=== PATIENT | female | born 1985 | race Caucasian/White ===

== ENCOUNTER → 2022-04-09 13:53 | Outpatient (CLI) | payer OTHER, SELFPAY ==
--- NOTE | ~2022-04-09 | US_ITS ---
US thyroid INDICATION: Hypothyroidism TECHNIQUE: Real-time sonographic images of the thyroid gland were obtained. COMPARISON: No prior studies for comparison. FINDINGS: The right thyroid lobe measures 3.9 x 0.9 x 1.2 cm. The left thyroid lobe measures 3.8 x 0 .9 x 1 cm. There is homogeneous echotexture in both lobes. In the right lobe there is a 2 mm hypoecho ic solid mass which is wider than tall, smoothly marginated without echogenic foci, TR 4. No mass is identified in the left lobe. Normal vascular flow is present. IMPRESSION: 1. Small 2 mm right thyroid mass, likely benign. Otherwise, unremarkable thyroid ultrasound. Reviewed, dictated and finalized at location A. IMPRESSION: 1. Small 2 mm right thyroid mass, likely benign. Otherwise, unremarkable thyro id ultrasound.
== END ==
PROVIDERS: PCP Physician Assistant; Visit Provider Physician Assistant
DX: E03.9 Hypothyroidism, unspecified (principal)
CPT/HCPCS: 76536

== ENCOUNTER → 2023-05-24 13:43 | Outpatient (CLI) | payer OTHER, SELFPAY ==
--- NOTE | ~2023-05-24 | US_ITS ---
EXAMINATION: US thyroid DATE: 05/24/2023 14:01 INDICATION: Hypothyroidism TECHNIQUE: Multiple ultrasound images of the thyroid were obtained. COMPARISON: None. FINDINGS: The right thyroid lobe measures 4.3 x 1.3 x 1.0 cm. The left thyroid lobe measures 3.8 x 1.1 x 1.1 c m. The isthmus measures 0.2 cm. There is normal echotexture and echogenicity throughout the thyroid g land. No discrete nodules identified. Normal vascular flow is present. IMPRESSION: Unremarkable thyroid ultrasound findings Reviewed, dictated and finalized at location K. SCIENCES TEACHER
== END ==
PROVIDERS: PCP Physician Assistant; Visit Provider Physician Assistant
DX: E03.9 Hypothyroidism, unspecified (principal)
CPT/HCPCS: 76536

== ENCOUNTER 2023-07-01 13:57 | Outpatient (CLI) | payer OTHER, SELFPAY ==
--- NOTE | ~2023-07-01 | MM_ITS ---
EXAMINATION: MM screening [place] BI w radha HISTORY: Screening mammogram TECHNIQUE: Craniocaudal and mediolateral oblique 3-D tomosynthesis images were obtained and synthetic 2-D images were generated. CAD analysis was submitted and interpreted. COMPARISON: No prior mammogram is available for comparison at this institution. BREAST PARENCHYMAL COMPOSITION: The breasts are heterogeneously dense, which may obscure small masses . FINDINGS: Status post bilateral augmentation mammoplasty. There is no evidence of suspicious mass, ca lcification, or architectural distortion to suggest malignancy in either breast. There has been no navarrete spicious interval change. IMPRESSION: 1. No mammographic evidence of malignancy. 2. Recommend routine screening mammography in one year. BI-RADS Category 1: Negative Reviewed, dictated and finalized at location A. SNAPPER
== END 2023-07-01 13:58 | disposition home or self-care (01) ==
LOC: CHSIMG 14:00
PROVIDERS: PCP Physician Assistant; Visit Provider Surgery Plastic and Reconstructive Surgery
DX: Z12.31 Encounter for screening mammogram for malignant neoplasm of breast (principal)
CPT/HCPCS: 77063; 77067

== ENCOUNTER 2023-08-18 00:08 | Day surgery (SDC) | payer OTHER, SELFPAY ==
[2023-08-08 12:42] VITALS: BMI 24.7
--- NOTE | 2023-08-08 12:45 | PC.NURSE ---
Report to the Outpatient Waiting Room, entrance under the green pavilion located off [facility], at time 0700 on date 08/18/23. Planned Procedure Time: 0900. Time changes happen often and if your time is changed the preop area will call you the afternoon before. - You and your visitor will be asked to self-screen and do not enter if you have any COVID symptoms. - A mask is optional within the hospital at this time. Patients may have clear liquids (water, carbonated beverages, clear teas, apple juice) until 3 hours prior to surgery with a maximum of 20 ounces. - No food from midnight until time of surgery Take the following medications with a SIP of water the morning of surgery: SYNTHROID DO NOT STOP ANY OF YOUR OTHER PRESCRIPTION MEDICATIONS PRIOR TO SURGERY ?EXCEPT THE FOLLOWING Medications to discontinue per physician: N/A Date to take last dose: N/A Please no make-up, nail yoruba, hairspray, perfume, deodorant, or body powder the day of surgery. No jewelry (including any body piercings) or valuables the day of surgery, leave them at home. Please take a shower or bath the night before, or the morning of, surgery with an antibacterial soap. Wear comfortable, loose fitting clothing. - Jewelry must be removed prior to entering the operating room. Rings and piercings that are not removed may be cut off. - The hospital will not accept responsibility for valuables. - Please leave all valuables, including medications, at home the day of surgery. If you are going home after surgery, a licensed owner operator tanker truck driver must drive you home. - NO public transportation without another adult if you receive anesthesia. - We recommend that an adult stay with you for 24 hours following discharge. - We also recommend that you do not drive, make important decision, drink alcoholic beverages, or take any drugs that were not prescribed by your health care provider for at least 24 hours after your discharge time. Follow any additional instructions given to you from your surgeon. If you or anyone in your household have experienced Covid symptoms in the past week, please notify your surgeon or the nurse liaison at the phone number below for possible testing. Telephone instructions given to PT - DYLON CLICK and asked if any additional questions and then verbalized understanding. Patient advised to call surgeon office or pre surgery nurse liaison [phone] if any additional questions.
[2023-08-18] VITALS (9 sets, daily range): BP systolic 94–107; BP diastolic 52–66; PULSE 63–79; RESP 12–18; TEMP 36.2–37; O2SAT 96–100
[2023-08-18] MEDS: LACTATED RINGERS 1,000 ML 30 ML IV CONT ×2 (07:35→10:33)
--- NOTE | 2023-08-18 08:22 | WPDHPUPDATE1 ---
History and Physical Update Update Date/Time: 08/18/23 08:22 History and Physical has been reviewed, including an updated exam of the patient. There are NO changes in the patient's condition. Risks, benefits, and alternatives have been discussed and questions answered. Patient agrees to proceed with procedure.
--- NOTE | 2023-08-18 08:35 | WPDANESEPPF ---
Anes - Initial Pre Proc Eval Procedure: Operation Date: 08/18/23 09:00 Proposed Procedures p Bilateral Breast Implant Exchange with Capsulectomy - Wolf Granados MD Date/Time: 08/18/23 08:35 Surgeon: Wolf Granados MD Pre Op Diagnosis: Hx of Breast Aug Patient Data Age: 38 Gender: F Height: 1.57 m Weight: 63.2 kg Last Vital Signs Temp 98.6 F 08/18/23 06:56 Pulse 65 08/18/23 06:56 Resp 18 08/18/23 06:56 BP 104/65 08/18/23 06:56 Pulse Ox 100 08/18/23 06:56 O2 Del Method Room Air 08/18/23 06:56 Allergies Allergy/AdvReac Type Severity Reaction Status Date / Time No Known Allergies Allergy Verified 08/08/23 12:48 Home Medications Medication Instructions Recorded Confirmed Type escitalopram oxalate 5 mg tablet 5 mg PO HS 08/08/23 08/18/23 History levothyroxine 88 mcg tablet 88 mcg PO DAILY 08/08/23 08/18/23 History (Synthroid) norethindrone 1 mg-ethinyl 1 tablet PO HS 08/08/23 08/18/23 History estradiol 20 mcg (21)-iron 75 mg (7) tablet (07/23 (28)) Patient hx anesthesia problems: none Family hx anesthesia problems: none Results Review: All pre-operative results and documents have been reviewed as part of the pre-operative evaluation. [facility] Social History Social History Smoking status: Never smoker Alcohol intake: current Alcohol use details: 1-2/YEAR Substance use: never Substance use type: does not use Living arrangements: with family Spiritual care concerns: No Anes - Eval Final PreProcedure Day of Procedure 08/18/23 08:35 Patient weight: normal Heart: regular rate and rhythm Lungs: clear to auscultation Airway: Mallampati scale class II Neurological: alert and oriented Last oral intake: >/= 8 hours ASA classification: II Emergent: no Anesthetic plan: proceed Anesthesia type and monitoring: general LMA and standard monitoring Results Review: All pre-operative results and documents have been reviewed as part of the pre-operative evaluation. Informed Consent: The patient's anesthetic plan and its attendant risks and benefits were discussed with the patient/family/POA. Questions were solicited and answers provided to the satisfaction of the patient/family/POA.
--- NOTE | 2023-08-18 08:43 | W.PM.PROC2 ---
Procedure Note - Detailed Date of Procedure 08/18/23 Pre-op Diagnosis Hx of Breast Aug Post-op Diagnosis Same Procedure Performed Bilateral implant exchange with change of plans to submuscular Surgeon Wolf Granados MD Anesthesia General Findings Previous implants - textured. Intact. No worriseome features. New implants Submuscular (dual plane). Bilateral Adan Edgar Softtouch 485cc Right - REF# SSF-485 SN [id number] Left - REF# SSF-485 SN [id number] Description of Procedure Preoperatively the risks, benefits, alternatives were discussed in extensive detail. I wanted to be very realistic about the risks involved as well as expectations. I was clear about how we could actually make her worse. Answered all questions to satisfaction. Voiced a clear understanding. Consent obtained. She was taken the operating room placed supine on the operating room table. Anesthesia provided by anesthesiology and prepped and draped in a standard sterile fashion. Surgical time-out was taken. 1% lidocaine and 0.25% Marcaine with epinephrine was used to provide a field block. Tegaderm nipple araujo were placed. Fifteen blade used to excise the previous IMF scars. Dissection was continued down until the capsules were identified and elevated superficial to this. I then incised in a superior aspect and the implant was removed. A signficiant portion of the capsule was removed; however, left an an capsular flap based on the inferior border of the muscle. I then copiously irrigated with 3 L of saline solution on TUR tubing. Verified strict hemostasis. Incised the pectoralis on it's inferior border. Elevated subpectoral to appropriate dimensions. I then irrigated with Betadine containing solution. Using a no-touch technique and a Mcdonald funnel the implant was introduced into the pocket. This was closed with 2-0 PDS (securing the capsuar flap with this to provide implant coverage. followed by 3-0 Monocryl and a running subcuticular 4-0 Monocryl followed by tissue glue. Dressings were placed. She was woken taken to the PACU without difficulty. All instrument sponge counts were correct at the end of the case. Estimated Blood Loss 50 Drains No Packing No Pathology Yes (Bilateral implant capsules.) Complications No immediate complications Condition Stable Disposition PACU
[2023-08-18] MEDS: NACL 0.9% IRRIG POUR BOTTLE 900 ML, GENTAMICIN SULFATE INJ 160 MG, ceFAZolin 2 GM, POVI... IRRIGATION (08:46)
[2023-08-18] MEDS: TRANEXAMIC ACID 1,000MG/ISO100 1,000 MG/100 ML BAG 200 MG IVPB (08:46)
[2023-08-18] MEDS: ceFAZolin 2 GM/D5W 50 ML 2 GM/50 ML BAG IVPB (08:46)
[2023-08-18] MEDS: LIDO 1%/EPINEPHRINE 1:100,000 50 ML VIAL 30 ML INFILTRATE (08:46)
[2023-08-18] MEDS: fentaNYL CITRATE INJ (*CRX) 100 MCG/2 ML VIAL 25 MCG IV PUSH ×7 (10:44→11:31)
[2023-08-18] MEDS: ONDANSETRON INJ 4 MG/2 ML VIAL IV PUSH (12:00)
[2023-08-18] MEDS: oxyCODONE HCL (*CRX) 5 MG TAB IR PO (12:12)
== END 2023-08-18 13:09 | disposition home or self-care (01) ==
PROVIDERS: PCP Physician Assistant; Visit Provider Surgery Plastic and Reconstructive Surgery
PROC: (CPT 19371; principal; 2023-08-18 09:00)
DX: Z41.1 Encounter for cosmetic surgery (principal)
CPT/HCPCS: 19371; 19325; 88184; 88304; A9270; J0690; J1100; J1580; J2250; J2405; J2704; J3010; J7120

== ENCOUNTER 2023-09-09 00:39 | Day surgery (SDC) | payer OTHER, SELFPAY ==
[2023-09-05 12:57] VITALS: BMI 25.4
--- NOTE | 2023-09-05 13:01 | PC.NURSE ---
Report to the Outpatient Waiting Room, entrance under the green pavilion located off [facility], at time 1300 on date 09/09/23. Planned Procedure Time: 1500. Time changes happen often and if your time is changed the preop area will call you the afternoon before. - You and your visitor will be asked to self-screen and do not enter if you have any COVID symptoms. - A mask is optional within the hospital at this time. Patients may have clear liquids (water, carbonated beverages, clear teas, apple juice) until 3 hours prior to surgery with a maximum of 20 ounces. - No food from midnight until time of surgery Take the following medications with a SIP of water the morning of surgery: SYNTHROID DO NOT STOP ANY OF YOUR OTHER PRESCRIPTION MEDICATIONS PRIOR TO SURGERY ?EXCEPT THE FOLLOWING Medications to discontinue per physician: N/A Date to take last dose: N/A Please no make-up, nail [place], hairspray, perfume, deodorant, or body powder the day of surgery. No jewelry (including any body piercings) or valuables the day of surgery, leave them at home. Please take a shower or bath the night before, or the morning of, surgery with an antibacterial soap. Wear comfortable, loose fitting clothing. - Jewelry must be removed prior to entering the operating room. Rings and piercings that are not removed may be cut off. - The hospital will not accept responsibility for valuables. - Please leave all valuables, including medications, at home the day of surgery. If you are going home after surgery, a licensed moving van driver must drive you home. - NO public transportation without another adult if you receive anesthesia. - We recommend that an adult stay with you for 24 hours following discharge. - We also recommend that you do not drive, make important decision, drink alcoholic beverages, or take any drugs that were not prescribed by your health care provider for at least 24 hours after your discharge time. Follow any additional instructions given to you from your surgeon. If you or anyone in your household have experienced Covid symptoms in the past week, please notify your surgeon or the nurse liaison at the phone number below for possible testing. Telephone instructions given to PT - DYLON CLICK and asked if any additional questions and then verbalized understanding. Patient advised to call surgeon office or pre surgery nurse liaison [phone] if any additional questions.
[2023-09-09] VITALS (7 sets, daily range): BP systolic 117–127; BP diastolic 65–81; PULSE 68–108; RESP 12–20; TEMP 36.6–37.1; O2SAT 96–100
[2023-09-09] MEDS: LACTATED RINGERS 1,000 ML 30 ML IV CONT (13:23)
--- NOTE | 2023-09-09 14:10 | WPDHPUPDATE1 ---
History and Physical Update Update Date/Time: 09/09/23 14:10 History and Physical has been reviewed, including an updated exam of the patient. There are NO changes in the patient's condition. Risks, benefits, and alternatives have been discussed and questions answered. Patient agrees to proceed with procedure.
--- NOTE | 2023-09-09 14:11 | W.PM.PROC2 ---
Procedure Note - Detailed Date of Procedure 09/09/23 Pre-op Diagnosis hematoma right breast Post-op Diagnosis Same Procedure Performed Right breast implant exchange with washout Surgeon Wolf Granados MD Anesthesia General Indications She underwent bilateral implant exchange with place change to submuscular on 08/18/2023. Postoperatively she has developed a fluid collection the right breast along IMF. Using ultrasound guidance in office I was able aspirate it does appear this is hematoma. She has elected to proceed with right breast washout / implant exchange. Findings Previous right implant: Right - REF# SSF-485 New right implant: Right - REF# SSF-485 [id number] Small volume old hematoma. Significant anterior capsular thickening excised. Description of Procedure Preoperatively the risks, benefits, alternatives were discussed in extensive detail. I wanted to be very realistic about the risks involved as well as expectations. I was clear about how we could actually make her worse. Answered all questions to satisfaction. Voiced a clear understanding. Consent obtained. She was taken the operating room placed supine on the operating room table. Anesthesia provided by anesthesiology and prepped and draped in a standard sterile fashion. Surgical time-out was taken. 1% lidocaine and 0.25% Marcaine with epinephrine was used to provide a field block. Tegaderm nipple araujo were placed. Fifteen blade used to excise the previous right IMF scars. Dissection was continued down until the capsules were identified and opened. There was a small volume of old hematoma (10cc est) with signficiant thickening of anterior capsule. Implant removed. Capsule excised. I then copiously irrigated with saline solution on TUR tubing. Several washes verifying hemostasis between each for more than 2 liters of saline. Verified strict hemostasis. I then irrigated with Betadine containing solution. Using a no-touch technique and a Mcdonald funnel the implant was introduced into the pocket. This was closed with 2-0 PDS. Placed in a sitting position to verify implant positioning. Placed supine and finished closure with 3-0 Monocryl and a running subcuticular 4-0 Monocryl followed by tissue glue. Dressings were placed. She was woken taken to the PACU without difficulty. All instrument sponge counts were correct at the end of the case. Estimated Blood Loss 10 Drains No Packing No Pathology None sent Complications No immediate complications Condition Stable Disposition PACU
--- NOTE | 2023-09-09 14:24 | P.PNAN_ITS ---
Anes - Initial Pre Proc Eval Procedure: Operation Date: 09/09/23 15:00 Proposed Procedures p Right Breast Implant Exchange with Washout, Hematoma Evacuation Right Breast - Wolf Granados MD Date/Time: 09/09/23 14:24 Surgeon: Wolf Granados MD Pre Op Diagnosis: hematoma right breast Patient Data Age: 38 Gender: F Height: 1.57 m Weight: 63.1 kg Last Vital Signs Temp 97.8 F 09/09/23 13:30 Pulse 68 09/09/23 13:30 Resp 16 09/09/23 13:30 BP 120/65 09/09/23 13:30 Pulse Ox 100 09/09/23 13:30 O2 Del Method Room Air 09/09/23 13:30 Allergies Allergy/AdvReac Type Severity Reaction Status Date / Time No Known Allergies Allergy Verified 09/09/23 13:14 Home Medications Medication Instructions Recorded Confirmed Type escitalopram oxalate 5 mg tablet 5 mg PO HS 08/08/23 09/09/23 History levothyroxine 88 mcg tablet 88 mcg PO DAILY 08/08/23 09/09/23 History (Synthroid) norethindrone 1 mg-ethinyl 1 tablet PO HS 08/08/23 09/09/23 History estradiol 20 mcg (21)-iron 75 mg (7) tablet (Junel FE 07/23 (28)) carisoprodol 350 mg tablet 350 mg PO HS 09/05/23 09/09/23 History Patient hx anesthesia problems: post op nausea/vomiting Family hx anesthesia problems: none Results Review: All pre-operative results and documents have been reviewed as part of the pre- operative evaluation. [facility] Social History Social History Smoking status: Never smoker Alcohol intake: current Alcohol use details: 1-2/YEAR Substance use: never Substance use type: does not use Living arrangements: with family Spiritual care concerns: No Anes - Eval Final PreProcedure Day of Procedure 09/09/23 14:24 Patient weight: normal Heart: regular rate and rhythm Lungs: clear to auscultation Airway: Mallampati scale class II Neurological: alert and oriented Last oral intake: >/= 8 hours ASA classification: II Emergent: no Anesthetic plan: proceed Anesthesia type and monitoring: general LMA and standard monitoring Results Review: All pre-operative results and documents have been reviewed as part of the pre- operative evaluation. Informed Consent: The patient's anesthetic plan and its attendant risks and benefits were discussed with the patient/family/POA. Questions were solicited and answers provided to the satisfaction of the patient/family/POA.
[2023-09-09] MEDS: SCOPOLAMINE 1 MG PATCH 1 PATCH TRANSDERM (14:31)
[2023-09-09] MEDS: ceFAZolin 2 GM/D5W 50 ML 2 GM/50 ML BAG IVPB (14:36)
[2023-09-09] MEDS: NACL 0.9% IRRIG POUR BOTTLE 900 ML, GENTAMICIN SULFATE INJ 160 MG, ceFAZolin 2 GM, POVI... IRRIGATION (14:51)
[2023-09-09] MEDS: LIDO 1%/EPINEPHRINE 1:100,000 20 ML VIAL 15 ML INFILTRATE (14:52)
[2023-09-09] MEDS: BUPivacaine HCL 0.25% PF 30 ML VIAL 15 ML INFILTRATE (14:53)
[2023-09-09] MEDS: TRANEXAMIC ACID 1,000 MG/10 ML AMPUL 1000 MG IV PUSH (15:07)
[2023-09-09] MEDS: fentaNYL CITRATE INJ (*CRX) 100 MCG/2 ML VIAL 25 MCG IV PUSH ×4 (15:45→16:00)
[2023-09-09] MEDS: oxyCODONE HCL (*CRX) 5 MG TAB IR PO (16:30)
== END 2023-09-09 17:15 | disposition home or self-care (01) ==
PROVIDERS: PCP Physician Assistant; Visit Provider Surgery Plastic and Reconstructive Surgery
PROC: (CPT 19342; principal; 2023-09-09 15:00)
DX: L76.34 Postprocedural seroma of skin and subcutaneous tissue following other procedure (principal); Y83.8 Other surgical procedures as the cause of abnormal reaction of the patient, or of later complication, without mention of misadventure at the time of the procedure; Z98.82 Breast implant status
CPT/HCPCS: 19371; 19325; A9270; J0690; J1100; J1580; J1596; J2250; J2405; J2704; J3010; J7120

== ENCOUNTER 2024-07-17 12:45 | Outpatient (CLI) | payer OTHER, SELFPAY ==
--- NOTE | ~2024-07-17 | CT_ITS ---
EXAMINATION: CT soft tissue neck w con DATE: 07/17/2024 13:08 INDICATION: Cervical lymphadenopathy. TECHNIQUE: Computed tomography (CT) of the neck was performed with 75 mL Omnipaque-350 intravenous co ntrast. Automated exposure control and iterative reconstruction technique were employed. The dose-ro gth product was 332.75 mGy-cm. COMPARISON: None FINDINGS: There are no pathologically enlarged lymph nodes. The cervical carotid arteries are normal. The paranasal sinuses are clear. The mastoid air cells are normal. There is severe cervical spondylo sis. IMPRESSION: 1. No lymphadenopathy. Reviewed, dictated and finalized at location A. RINARY PRACTITIONER IMPRESSION: 1. No lymphadenopathy.
== END 2024-07-17 12:46 | disposition home or self-care (01) ==
LOC: MICIMG 12:45
PROVIDERS: PCP Physician Assistant; Visit Provider Physician Assistant
DX: R59.0 Localized enlarged lymph nodes (principal)
CPT/HCPCS: 70491; Q9967

== ENCOUNTER 2024-08-08 07:00 | Outpatient (NON) | payer OTHER, SELFPAY ==
--- OUTSIDE RECORDS SUMMARY | 2024-08-09 08:05 | XMS_ITS | Patient Health Summary ---
Author Organization [facility] Address [address] [place] [address] Care Team Providers Care Gi Physician Name Role Phone Lilia Kinney Primary Care Pr ovider Note from [facility],non-owned Affiliates and Associated Physician Practices is amultiple site organization consisting of ambulatory clinics and hospital sitesin [place], [place], [place] and [place]. This disclosure is being madepursuant to the Care Everywhere program and may not contain all information available regarding this patient. Last updated 18.[facility] Allergies No known active allergies Medications * Be aware that medications may not be up to date on this document. Alwaysverify current medications with the patient. * sertraline (ZOLOFT) 50 MG tablet(Started 10/05/2019) Take 1 tablet by mouth once daily * norethin-eth estrad-fe biphas (LO LOESTRIN FE) tablet(Started 06/12/2020) Take 1 tablet by mouth once daily 3 refills by 06/12/2021 Active Problems Problem Noted Date Diagnosed Date 06/04/2019 Rubella non-immune status, antepartum 10/06/2018 Immunizations * MMR(Given 06/06/2019) * TDAP (7yrs+)(Given 05/08/2019) Social History Tobacco Use Types Packs/Day Years Used Date Smoking Tobacco: Never Smokeless Tobacco: Never Alcohol Use Standard Drinks/Week Comments No 0 (1 standard drink = 0.6 oz pur e alcohol) Sex and Gender Information Value Date Recorded Sex Assigned at Not on file Gender Identity Not on file Sexual Orientation Not on file Last Filed Vital Signs Vital Sign Reading Time Taken Comments Blood Pressure 100/68 06/12/2020 11:53 AM HAND FUR CLEANER Pulse 63 06/05/2019 10:49 PM HAND FUR CLEANER Temperature 37 C (98.6 F) 06/06/2019 7:55 AM HAND FUR CLEANER Respiratory Rate 18 06/06/2019 7:55 AM HAND FUR CLEANER Oxygen Saturation 98% 06/06/2019 7:50 AM HAND FUR CLEANER Inhaled Oxygen Concentration - - Weight 88 kg (194 lb) 06/12/2020 11:53 AM HAND FUR CLEANER Height 157.5 cm (5' 2 ) 06/12/2020 11:53 AM HAND FUR CLEANER Body Mass Index 35.48 06/12/2020 11:53 AM HAND FUR CLEANER Procedures * PAP IG LB+HPV APTIMA(Performed 06/12/2020) Performed for Well woman exam with routine gynecological exam * CBC W AUTO DIFFERENTIAL(Performed 06/05/2019) * BLOOD GASES CORD ROMEO(Performed 06/04/2019) * BLOOD GASES CORD ARTERIAL(Performed 06/04/2019) * PATHOLOGY TISSUE EXAM (STL)(Performed 06/04/2019) Performed for 40 weeks gestation of ([facility]) * NEURAXIAL BLOCK(Performed 06/04/2019) * BLOOD TYPE VERIFICATION(Performed 06/04/2019) * TYPE + SCREEN PANEL(Performed 06/04/2019) Performed for 40 weeks gestation of ([facility]) * CBC W AUTO DIFFERENTIAL(Performed 06/04/2019) Performed for 40 weeks gestation of ([facility]) * URINALYSIS REFLEX TO MICROSCOPIC NO CULTURE(Performed 06/04/2019) Performed for 40 weeks gestation of ([facility]) * US OB LIMITED(Performed 05/17/2019) Performed for Encounter for supervision of normal first in third trimester ([facility]), with 36 completed weeks gestation ([facility]), Malpresentation of fetus, unspecified type, single or unspecified fetus ([facility]) * CULTURE STREP B(Performed 05/08/2019) Performed for Encounter for supervision of normal first in third trimester ([facility]), with 36 completed weeks gestation ([facility]) * GTT 3 HR (100G) GESTATIONAL DIAGNOSTIC(Performed 03/12/2019) Performed for Abnormal glucose tolerance test (GTT) during , antepartum ([facility]) * CBC W AUTO DIFFERENTIAL(Performed 03/02/2019) Performed for 27 weeks gestation of ([facility]) * GLUCOSE CHALLENGE(Performed 03/02/2019) Performed for 23 weeks gestation of ([facility]) * US OB ANOMALY(Performed 01/15/2019) Performed for 17 weeks gestation of ([facility]) * ALPHA FETOPROTEIN BLOOD MATERNAL QUAD PANEL(Performed 12/22/2018) Performed for 17 weeks gestation of ([facility]) * US OB TRANSVAGINAL(Performed 10/19/2018) Performed for Amenorrhea * BLOOD TYPE RH ONLY(Performed 10/05/2018) Performed for Amenorrhea * BLOOD TYPE ABO ONLY(Performed 10/05/2018) Performed for Amenorrhea * ANTIBODY SCREEN(Performed 10/05/2018) Performed for Amenorrhea * HIV-1 HIV-2 ANTIBODY + HIV P24 AG PANEL(Performed 10/05/2018) * VITAMIN D 25-HYDROXY(Performed 10/05/2018) Performed for Amenorrhea * TSH(Performed 10/05/2018) Performed for Amenorrhea * T4 FREE(Performed 10/05/2018) Performed for Amenorrhea * RUBELLA ANTIBODY IGG(Performed 10/05/2018) Performed for Amenorrhea * RPR(Performed 10/05/2018) Performed for Amenorrhea * PROGESTERONE(Performed 10/05/2018) Performed for Amenorrhea * HEPATITIS B SURFACE ANTIGEN W RFLX CONFIRMATION(Performed 10/05/2018) Performed for Amenorrhea * HCG BETA BLOOD QUANTITATIVE(Performed 10/05/2018) Performed for Amenorrhea * CBC W AUTO DIFFERENTIAL(Performed 10/05/2018) Performed for Amenorrhea * URINALYSIS AUTO - POINT OF CARE(Performed 10/05/2018) Performed for Amenorrhea * CULTURE URINE(Performed 10/05/2018) Performed for Amenorrhea * PAP IG LB CT+GC+TV+ HPV HR DNA(Performed 10/05/2018) Performed for Amenorrhea Results * PAP IG LB+HPV APTIMA (06/12/2020 12:30 PM HAND FUR CLEANER) Diagnosis [facility] ACCOUNT BILL Comment:NEGATIVE FOR INTRAEP ITHELIAL LESION OR MALIGNANCY. Specimen Adequacy [facility] ACCOUNT BILL Comment: Satisfactory for evaluation. Endocervical and/or squamous metaplastic cells (endocervical component) are present. Clinician Provided ICD10 [facility] ACCOUNT BILL Comment:Z01.419 Performed by [facility] ACCOUNT BILL Comment:Azalia Upton otechnologist (ASCP) Comment . [facility] ACCOUNT BILL Note [facility] ACCOUNT BILL Comment: The Pap smear is a screening test designed to aid in the detection of premalignant and malignant conditions of the uterine cervix. It is not a diagnostic procedure and should not be used as the sole means of detecting cervical cancer. Both false-positive and false-negative reports do occur. . IGLBP CPT Code Automation [facility] ACCOUNT BILL Comment: This liquid based ThinPrep(R) pap test was screened with the use of an image guided system. Human papillomavirus Aptima Negative Negative [facility] ACCOUNT BILL Comment: This nucleic acid amplification test detects fourteen high-risk HPV types (16,18,31,33,35,39,45,51,52,56,58,59,66,68) without differentiation. PART OF UTERINE CERVIX / Unknown 06/12/2020 12:30 PM HAND FUR CLEANER 06/13/2020 Narrative [facility] ACCOUNT BILL - 06/16/2020 3:08 PM HAND FUR CLEANER Source.............Cervix;Endocervix No. of containers..01 ThinPrep Vial Resulting Agency Comment Lab Testing performed at: [address] [id number] Sandoval Campos MD LAB - PATHOLOGY/CYT OLOGY ORDERABLES [facility] ACCOUNT BILL [address] [place] [address] * (ABNORMAL) CBC W AUTO DIFFERENTIAL (06/05/2019 7:44 AM HAND FUR CLEANER) Only the most recent of4 resultswithin the time period is included. WBC 16.9(H) 4.4 - 10.7 x10E9/L 06/05/2019 7:58 AM HAND FUR CLEANER [facility] WBC Corrected 06/05/2019 7:58 AM HAND FUR CLEANER [facility] RBC 4.28 3.80 - 5.20 x10E12/L 06/05/2019 7:58 AM HAND FUR CLEANER [facility] Hemoglobin 11.9(L) 12.0 - 15.6 gm/dL 06/05/2019 7:58 AM HAND FUR CLEANER [facility] Hematocrit 36.2 35.9 - 45.5 % 06/05/2019 7:58 AM HAND FUR CLEANER [facility] MCV 84.6 80.7 - 98.3 fl 06/05/2019 7:58 AM HAND FUR CLEANER [facility] MCH 27.8 26.7 - 34.0 pg 06/05/2019 7:58 AM [facility] MCHC 32.9 30.8 - 35.9 gm/dL 06/05/2019 7:58 AM [facility] Platelet Count 231 153 - 416 x10E9/L 06/05/2019 7:58 AM [facility] RDW-CV 14.0 12.1 - 14.9 % 06/05/2019 7:58 AM [facility] MPV 9.5 9.4 - 12.9 fl 06/05/2019 7:58 AM [facility] Neutrophils % 79.6(H) 44.0 - 73.0 % 06/05/2019 7:58 AM [facility] Lymphocytes % 10.1(L) 20.0 - 43.0 % 06/05/2019 7:58 AM [facility] Monocytes % 8.4 5.0 - 13.0 % 06/05/2019 7:58 AM [facility] Eosinophils % 0.6 0.0 - 6.0 % 06/05/2019 7:58 AM [facility] Basophils % 0.3 0.0 - 2.0 % 06/05/2019 7:58 AM [facility] Immature Granulocytes 1.0 0 - 1 % 06/05/2019 7:58 AM [facility] Neutrophil Absolute 13.43(H) 2.01 - 7.14 x10E9/L 06/05/2019 7:58 AM [facility] Lymphocytes Absolute 1.71 1.07 - 3.94 x10E9/L 06/05/2019 7:58 AM [facility] Monocytes Absolute 1.41(H) 0.26 - 1.07 x10E9/L 06/05/2019 7:58 AM [facility] Eosinophils Absolute 0.10 0 - 0.47 x10E9/L 06/05/2019 7:58 AM [facility] Basophils Absolute 0.05 0 - 0.08 x10E9/L 06/05/2019 7:58 AM [facility] Immature Granulocytes Absolute 0.17(H) 0.00 - 0.06 x10E9/L 06/05/2019 7:58 AM [facility] nRBC Auto 0 /100 WBC 06/05/2019 7:58 AM [facility] Blood BLOOD SPECIMEN / Unknown Lab Venipuncture / Unknown 06/05/2019 7:44 AM HAND FUR CLEANER 06/05/2019 7:54 AM HAND FUR CLEANER Sandoval Campos MD LAB - HEMATOLOGY OR DERABLES Performing Organization Address [facility]/ZIP Co de Phone Number [facility] [address] [phone] * (ABNORMAL) BLOOD GASES CORD ROMEO (06/04/2019 4:54 PM HAND FUR CLEANER) pH Cord Venous 7.27(L) 7.28 - 7.40 pH 06/04/2019 4:54 PM HAND FUR CLEANER [facility] RESP THERAP[facility] pCO2 Cord Venous 43 35 - 45 mm hg 06/04/2019 4:54 PM HAND FUR CLEANER [facility] RESP THERAPY pO2 Cord Venous 24 22 - 33 mm hg 06/04/2019 4:54 PM HAND FUR CLEANER [facility]P [facility]ERAP[facility] HCO3 Cord Venous 19(L) 22 - 24 mmol/L 06/04/2019 4:54 PM HAND FUR CLEANER [facility]P [facility]ERAP[facility] BE Cord Venous -7.8 mmol/L 06/04/2019 4:54 PM HAND FUR CLEANER [facility]ERAP[facility] O2 Saturation Cord Venous 52 % 06/04/2019 4:54 PM HAND FUR CLEANER [facility]ERAP[facility] Mode Unknown 06/04/2019 4:54 PM HAND FUR CLEANER [facility] RESP THERAPY Steven's Test N/A 06/04/2019 4:54 PM HAND FUR CLEANER [facility]ERAP[facility] Sample Site UMB 06/04/2019 4:54 PM HAND FUR CLEANER [facility] THERAPY Sample Type Cord Blood Venous 06/04/2019 4:54 PM HAND FUR CLEANER [facility] RESP THERAPY Corn Grower ID KERRIE DE LOS SANTOS 06/04/2019 4:54 PM HAND FUR CLEANER [facility] RESP THERAPY Blood CORD BLOOD SPECIMEN / Unknown 06/04/2019 4:46 PM HAND FUR CLEANER Sandoval Campos MD LAB - BLOOD GASES O RDERABLES Performing Organization Address [facility]/ZIP Co de Phone Number [facility] RESP [facility]ERAP[facility] [address] [id number] * (ABNORMAL) BLOOD GASES CORD ARTERIAL (06/04/2019 4:53 PM HAND FUR CLEANER) pH Cord Arterial 7.22 7.20 - 7.34 pH 06/04/2019 4:53 PM HAND FUR CLEANER [facility] RESP THERAPY pCO2 Cord Arterial 36(L) 45 - 55 mm hg 06/04/2019 4:53 PM HAND FUR CLEANER [facility] RESP THERAPY pO2 Cord Arterial 31(H) 12 - 25 mm hg 06/04/2019 4:53 PM HAND FUR CLEANER [facility] RESP THERAPY HCO3 Cord Arterial 14.3(L) 22.0 - 24.0 mmol/L 06/04/2019 4:53 PM HAND FUR CLEANER [facility] RESP THERAPY BE Cord Arterial -12.4 mmol/L 06/04/20 19 4:53 PM HAND FUR CLEANER [facility] RESP THERAPY O2 Saturation Cord Arterial 65 % 06/04/2019 4:53 PM HAND FUR CLEANER [facility] RESP THERAPY Mode Unknown 06/04/2019 4:53 PM HAND FUR CLEANER [facility] RESP THERAPY Steven's Test N/A 06/04/2019 4:53 PM HAND FUR CLEANER [facility] RESP THERAPY Sample Site UMB 06/04/2019 4:53 PM HAND FUR CLEANER [facility] RESP THERAPY Sample Type Cord blood Arterial 06/04/2019 4:53 PM HAND FUR CLEANER [facility] RESP THERAPY Corn Grower ID KERRIE DE LOS SANTOS 06/04/2019 4:53 PM HAND FUR CLEANER [facility] RESP THERAPY Notified Who Chapo Marie RN 06/04/2019 4:53 PM HAND FUR CLEANER [facility]ERAP[facility] Notification Time 06/04/2019 16:52 06/04/2019 4:53 PM HAND FUR CLEANER [facility] RESP [facility]ERAP[facility] Notified By Ene Faustin RRT 06/04/2019 4:53 PM HAND FUR CLEANER [facility] RES[facility]ERAP[facility] Blood, arterial CORD BLOOD SPECIMEN / Unknown 06/04/2019 4:46 PM HAND FUR CLEANER Sandoval Campos MD LAB - BLOOD GASES O RDERABLES [facility] [address] * GROSS + MICRO EXAM (STL) (06/04/2019 4:21 PM HAND FUR CLEANER) Case Report Surgical Pathology Report Case: [id number] Authorizing Provider: Sandoval Campos MD Collected: 06/04/2019 04:21 PM Ordering Location: [facility] Received: 06/05/2019 08:26 AM Pathologist: Bubba Painting MD Specimen: Placenta 06/07/2019 1:34 PM HAND FUR CLEANER [facility] Final Diagnosis Placenta, delivery: -- Mature placenta, weight 474 g -- No evidence of funisitis or chorioamnionitis MC\ 06/07/2019 1:34 PM [facility] Gross Description Received in a container of formalin labeled Caden, Jazmin and placenta is a placenta with attached umbilical cord stump and membranes. The ovoid placenta measures 21 x 17 x 3.8 cm. The umbilical stump measures approximately 0.4 cm in length x 0.9 cm in diameter and inserts 5.5 cm from the margin. The number of vessels cannot grossly be determined. The surface is purple-brown and displays the usual vascular pattern. The membranes are purple-brown, thin and transparent, and insert at the margin. The trimmed placenta weight is 474 grams. The material surface displays grossly complete and intact cotyledons. The cotyledons are serially sectioned and display spongy red parenchyma. Doll Repairer sections are submitted as follows: A1 - umbilical cord and membranes; A2 - surface; A3 - maternal surface. The umbilical cord is submitted entirely. Babak 06/07/2019 1:34 PM [facility] Microscopic Description Microscopic examination of umbilical stump and membranes show no evidence of inflammation and meconium is not identified. The chorionic villi are small, mature, and well vascularized with no evidence of villitis or infarction. The decidua basalis and chorionic plate show no pathologic changes. 06/07/2019 1:34 PM [facility] Disclaimer All histochemical and/or immunohistochemical results are interpreted with controls that demonstrate appropriate staining reactions before reporting results. Note on use of immunocytochemistry reagents: This test was developed and its performance characteristic determined by [facility], Department of Laboratory Medicine. It has not been cleared or approved by the U.S. Food and Drug Administration (FDA). The FDA has determined that such clearance or approval is not necessary. The test is used for clinical purpose. It should not be regarded as investigational or for research. This laboratory is certified to perform high complexity testing. 06/07/2019 1:34 PM [facility] Embedded Images 06/07/2019 1:34 PM [facility] Pathology/Cytolo gy ENTIRE PLACENTA / Unknown 06/04/2019 4:21 PM HAND FUR CLEANER 06/05/2019 8:26 AM HAND FUR CLEANER Sandoval Campos MD LAB - PATHOLOGY/CYT OLOGY ORDERABLES [facility] [address] [id number] * EPIDURAL BLOCK PERF (06/04/2019 12:16 PM HAND FUR CLEANER) Narrative aCin Valdez MD - 06/04/2019 12:16 PM HAND FUR CLEANER Cain Valdez MD 06/04/2019 12:19 PM Neuraxial Block Note Pre-Procedure: Procedure Name: Neuraxial Block Indications: at patient's request and labor analgesia Pre-Anesthetic Checklist: Patient identified, IV Checked, Risks and benefits discussed, Surgical consent verified, Monitors and equipment, Site examined, Pre-op evaluation done, Time-out performed, Informed consent obtained, Questions answered/anesthesia questions answered and Allergies reviewed Anticoagulation/ Anti-thrombosis status confirmed? Yes Supplemental O2: room air Monitors: BP and continuous pluse ox Patient Condition: awake Procedure: Block Type: Epidural Prep: Chloraprep Sterile Field: mask, cap/hat, sterile established and sterile gloves Approach: midline Skin was localized? Yes Skin localized with: lidocaine (XYLOCAINE) 1 % injection, 3 mL Epidural Block: Is this procedure for postop pain? No Needle Type: Tuohy Needle gauge: 19 G Needle length: 90 mm Placement Site: L2-L3 Number of Attempts: 1 Loss of Resistance: 6 saline Catheter threaded to (cm): 4 Catheter length at skin (cm): 10 Test Dose: lidocaine 1.5% with 1-200,000 epinephrine 3 mL at 06/04/2019 11:30 AM Test Dose Response: No Epidural Local Anesthetic Used? No Epidural Infusion Medications: Ropivacaine: 0.2% with Fentanyl 2mcg/mL in NS , 8 cc (mL) at 8 mL/hr Degree of difficulty: none Procedure Tolerance: tolerated well Sensory Level: lumbo sacral Position post procedure: supine Vital Signs: Vital signs moniitored and stable throughout. See nursing vitals flowsheet for details. Start Time: 06/04/2019 11:12 AM End Time: 06/04/2019 11:40 AM Total Time: 28 Staff: Anesthesia Provider: Cain Valdez MD - performed the procedure Cain Valdez MD GENERAL ANESTHESIA O RDERABLES * BLOOD TYPE VERIFICATION (06/04/2019 6:07 AM HAND FUR CLEANER) ABO O 06/04/2019 7:44 AM HAND FUR CLEANER [facility] Rh Type Positive 06/04/2019 7:44 AM [facility] Blood Bank BLOOD SPECIMEN / Unknown Venipuncture / Unknown 06/04/2019 6:07 AM HAND FUR CLEANER 06/04/2019 6:11 AM HAND FUR CLEANER Lacey Connell MD LAB - BLOOD BANK OR DERABLES [facility] [address] [address] [id number], [facility] [phone] * TYPE + SCREEN PANEL (06/04/2019 4:30 AM HAND FUR CLEANER) ABO O 06/04/2019 5:32 AM HAND FUR CLEANER [facility] Rh Type Positive 06/04/2019 5:32 AM HAND FUR CLEANER [facility] Comment:History checked. Col lect retype. Antibody Screen Negative 06/04/2019 5:32 AM HAND FUR CLEANER [facility] Blood Bank BLOOD SPECIMEN / Unknown Venipuncture / Unknown 06/04/2019 4:30 AM HAND FUR CLEANER 06/04/2019 4:38 AM HAND FUR CLEANER Lacey Connell MD LAB - BLOOD BANK OR DERABLES [facility] BLOOD [facility] [address] [address], [facility] [phone] * URINALYSIS REFLEX TO MICROSCOPIC NO CULTURE (06/04/2019 4:29 AM HAND FUR CLEANER) Color UA Straw Straw, Yellow 06/04/2019 4:42 AM [facility] Clarity UA Clear Clear 06/04/2019 4:42 AM [facility] Glucose UA Negative Negative 06/04/2019 4:42 AM [facility] Bilirubin UA Negative Negative 06/04/2019 4:42 AM [facility] Ketone UA Negative Negative 06/04/2019 4:42 AM [facility] Specific [place] UA 1.005 1.005 - 1.030 06/04/2019 4:42 AM HAND FUR CLEANER [facility] Blood UA Negative Negative 06/04/2019 4:42 AM HAND FUR CLEANER [facility] pH UA 7.0 5.0 - 8.0 pH 06/04/2019 4:42 AM HAND FUR CLEANER [facility] Protein UA Negative Negative 06/04/2019 4:42 AM HAND FUR CLEANER [facility] Urobilinogen UA Negative Negative mg/dL 06/04/2019 4:42 AM HAND FUR CLEANER [facility] Nitrite UA Negative Negative 06/04/2019 4:42 AM HAND FUR CLEANER [facility] Leukocyte UA Negative Negative 06/04/2019 4:42 AM HAND FUR CLEANER [facility] Urine Microscopy Urine microscopy not indicated 06/04/2019 4:42 AM [facility] Urine URINE SPECIMEN OBTAINED BY CLEAN CATCH PROCEDURE / Unknown Collection / Unknown 06/04/2019 4:29 AM HAND FUR CLEANER 06/04/2019 4:38 AM HAND FUR CLEANER Narrative [facility] - 06/04/2019 4:42 AM HAND FUR CLEANER Lacey Connell MD LAB - URINALYSIS OR DERABLES [facility] [address] [id number] * US OB LIMITED (05/17/2019 8:59 AM HAND FUR CLEANER) Anatomical Region Laterality Modality Abdomen, Pelvis Ultrasound Narrative 05/17/2019 8:59 AM HAND FUR CLEANER Sandoval Campos MD 05/17/2019 9:02 AM [facility] BOOMSWING OPERATOR [facility]TR[facility] - Limited Pt. Name: Jazmin Negrete is a 33 year old : 1985 LMP: Patient's last menstrual period was 09/27/2018 (exact date). BMI: 35.46 kg/m2 Exam Date: 05/17/2019 Referring Physician: Bayron Rea Reason for Scan: Check position Transabdominal: Yes Transvaginal: No Gestational age: 37 wks 6 days Presentation: cephalic Cardiac Motion: Yes FHR: 130 bpm Placenta location: posterior AFV: 11.92 cm CPT: 38238 Physician Interpretation: Vertex position. Normal HARDIK Neon Sign Maker: Tila Pradhan RDMS, RT(R) Images will be scanned into the record. Interpreting Physician: Andrei Campos Procedure Note Tila Pradhan - 05/17/2019 8:59 AM [facility]OMSW[facility] OPER[facility] - Limited Pt. Name: Jazmin Negrete is a 33 year old : 1985 LMP: Patient's last menstrual period was 09/27/2018 (exact date). BMI: 35.46 kg/m2 Exam Date: 05/17/2019 Referring Physician: Bayron Rea Reason for Scan: Check position Transabdominal: Yes Transvaginal: No Gestational age: 37 wks 6 days Presentation: cephalic Cardiac Motion: Yes FHR: 130 bpm Placenta location: posterior AFV: 11.92 cm CPT: 94111 Physician Interpretation: Vertex position. Normal HARDIK Neon Sign Maker: Tila Pradhan RDMS, RT(R) Images will be scanned into the record. Interpreting Physician: Andrei Campos Tish Rea MD US ORDERABLES * CULTURE STREP B (05/08/2019 4:38 PM HAND FUR CLEANER) Strep Group B Culture Negative Negative [facility] ACCOUNT BILL Comment: Centers for Disease Control and Prevention (CDC) and [place] [employer] of Obstetricians and Gynecologists (ACOG) guidelines for prevention of group B streptococcal (GBS) disease specify co-collection of a vaginal and rectal swab specimen to maximize sensitivity of GBS detection. Per the CDC and ACOG, swabbing both the lower vagina and rectum substantially increases the yield of detection compared with sampling the vagina alone. . Penicillin G, ampicillin, or cefazolin are indicated for intrapartum prophylaxis of GBS colonization. Reflex susceptibility testing should be performed prior to use of clindamycin only on GBS isolates from penicillin-allergic women who are considered a high risk for anaphylaxis. Treatment with vancomycin without additional testing is warranted if resistance to clindamycin is noted. Microbiology MISCELLANEOUS SAMPLES / Unknown 05/08/2019 4:38 PM HAND FUR CLEANER 05/08/2019 Narrative Resulting Agency Comment Lab Testing performed at: [facility] [address] [phone] Tish Rea MD LAB - MICROBIOLOGY O RDERABLES Performing Organization Address [facility] de Phone Number [facility] ACCOUNT BILL [address] [place] [address] * (ABNORMAL) GTT 3 HR (100G) GESTATIONAL DIAGNOSTIC (03/12/2019 12:00 PM CDT) Glucose Fasting Gest Tolerance 68 65 - 94 mg/dL [facility] INSURANCE BILL GTT1Hr 181(H) 65 - 179 mg/dL [facility] INSURANCE BILL Glucose - 2 hour 97 65 - 154 mg/dL [facility] INSURANCE BILL GTT 3Hr 50(L) 65 - 139 mg/dL [facility] INSURANCE BILL Note [facility] INSURANCE BILL Comment: For diagnosis of gestational diabetes, at least two values must meet or exceed normal limits, which is based on 100 gm of oral glucose challenge. FASTING Blood BLOOD SPECIMEN / Unknown 03/12/2019 12:00 PM CDT 03/12/2019 Narrative Resulting Agency Comment Lab Testing performed at: [facility] [phone] Sandoval Campos MD LAB - CHEMISTRY ORD ERABLES Performing Organization Address [facility] de Phone Number [facility] INSURANCE BILL [address] [place] [address] * (ABNORMAL) GLUCOSE CHALLENGE (03/02/2019 9:39 AM CDT) [facility] GTT 1Hr 180(H) 65 - 139 mg/dL [facility] ACCOUNT BILL Comment: According to ADA, a glucose threshold of >139 mg/dL after 50-gram load identifies approximately 80% of women with gestational diabetes mellitus, while the sensitivity is further increased to approximately 90% by a threshold of >129 mg/dL. FASTING Blood BLOOD SPECIMEN / Unknown 03/02/2019 9:39 AM CDT 03/02/2019 Narrative Resulting Agency Comment Lab Testing performed at: [facility] [id number] Sandoval Campos MD LAB - CHEMISTRY ORD ERABLES Performing Organization Address [facility] Co de Phone Number [facility] ACCOUNT BILL [address] [place] [address] * US OB ANOMALY (01/15/2019 3:20 PM CDT) Anatomical Region Laterality Modality Pelvis Ultrasound Narrative 01/15/2019 3:20 PM CDT Sandoval Campos MD 01/15/2019 3:20 PM [facility] BOOMSWING OPERATOR [place] OB ULTRASOUND - ANOMALY SCREEN Pt. Name: Jazmin Negrete is a 33 year old : 1985 LMP: Patient's last menstrual period was 09/27/2018 (exact date). BMI: 30.24 kg/m2 Exam Date: 01/15/2019 Referring Physician: Andrei Campos Reason for Scan: Anomaly screen Transabdominal: Yes Transvaginal: No Gestational age: 19 wks 5 days Gestational age by today's U/S: 21 wks 0 days Presentation: breech FHR: 141 bpm Cervical Length: 4.23 cm BPD: 5.00 cm consistent with 21 wks 1 days, 93.9% OFD: 6.50 cm HC: 18.45 cm consistent with 20 wks 6 days, 87.0% AC: 15.99 cm consistent with 21 wks 1 days, 85.7% FL: 3.46 cm consistent with 20 wks 6 days, 81.9% CEREB: 2.07 cm NF: 6.29 mm CI: 77 % WNL HC/AC: 1.15 WNL EFW: 0 lbs 14 oz. >90.0 % Placenta location: posterior Placental grade: 1 AFV: WNL UCI S 3 VC S Cranial Anatomy: S Cerebellum: S Cho Plexus: S CSP: S Profile: S Eyes: S Nose/mouth: S Stomach: S Diaphragm: S Kidneys: S Bladder: S Spine: S Upper Extremeties: S Lower Extremeties: S Situs: S 4 Chamber Heart: S LVOT: S RVOT: S (Irving: S = Seen, N = Not Seen, U = Unsatisfactory) CPT: 04773 Neon Sign Maker comments: Anomaly screen is complete. Physician Interpretation: Complete anomaly screen Neon Sign Maker: Tial Pradhan RDMS, RT(R) Images will be scanned into the record. Interpreting Physician: Andrei Campos Sandoval Campos MD US ORDERABLES * ALPHA FETOPROTEIN BLOOD MATERNAL QUAD PANEL (12/22/2018 2:41 PM CDT) Results Report [facility] ACCOUNT BILL Test Results *Screen Negative* [facility] ACCOUNT BILL Gestational Age Weeks 17.0 WEEKS [facility] ACCOUNT BILL Gestational Age Based On As provided [facility] ACCOUNT BILL [age]AVIO [age] [facility] ACCOUNT BILL Race [facility] ACCOUNT BILL Weight 168 lbs [facility] ACCOUNT BILL Insulin Dependent Diabetes [facility] ACCOUNT BILL Comment: Not provided. . Multiple Gestation No [facility] ACCOUNT BILL Alpha-Fetoprotein Value (EIA) 49.6 ng/mL [facility] ACCOUNT BILL AFP MoM Value 1.44 [facility] ACCOUNT BILL hCG Value 35,933 mIU/mL [facility] ACCOUNT BILL hCG Mom 1.13 [facility] ACCOUNT BILL Estriol Value 1.14 ng/mL [facility] ACCOUNT BILL Estriol MoM 1.14 [facility] ACCOUNT BILL SANGEETHA Value 137.15 pg/mL [facility] ACCOUNT BILL Sangeetha MoM Value 0.86 [facility] ACCOUNT BILL OSBR Risk 1 IN 3,220 [facility] ACCOUNT BILL DSR (2nd Trimester) 1 IN 8,749 [facility] ACCOUNT BILL DSR (By Age) 1 IN 452 [facility] ACCOUNT BILL T18 Risk Not increased [facility] ACCOUNT BILL T18 (by Age) 1:1761 [facility] ACCOUNT BILL Interpretation [facility] ACCOUNT BILL Comment: Interpretation: Screen Negative This result is screen negative for OSB, Down Syndrome and Trisomy 18. The AFP MoM and patient specific risks calculated are based on the gestational age and the clinical information provided. This test can identify up to 80% of open neural tube defects. Closed neural tube defects and some open defects may not be detected by this test. The combination of maternal age, AFP, hCG, uE3, and SANGEETHA identifies 75-80% of Down Syndrome. The combination of maternal age, AFP, hCG and uE3 identifies 60% of Trisomy 18 pregnancies. The [place] [employer] recommends amniocentesis be offered to women age 35 and older. Recalculations are not recommended when gestational dating by LMP and ultrasound are within 10 days. Comments [facility] ACCOUNT BILL Comment: Mayra Teague, Ph.D., [facility] [employer] Can [employer] . References: Available Upon Request. . Multiples Of Median Cutoffs Abbreviation Definitions For AFP Elevations IDD- Insulin Dep Diabetes Cruz 2.5 Black 2.8 OSBR- Open Spina Bifida IDD 2.0 Twins 4.5 Risk DSR Cutoff 1:270 DSR- Down Syndrome Risk T18 Cutoff 1:100 T18- Trisomy 18 . Down Syndrome and Trisomy 18 screening are considered Investigational . For further inquiries contact [facility] at [phone]. Blood BLOOD SPECIMEN / Unknown 12/22/2018 2:41 PM CDT 12/22/2018 Narrative Resulting Agency Comment Lab Testing performed at: [facility] [address] [facility] [place] [id number] Sandoval Campos MD LAB - CHEMISTRY ORD ERABLES [facility] ACCOUNT BILL [address] [place] [address] * US OB TRANSVAGINAL (10/19/2018 2:12 PM CDT) Anatomical Region Laterality Modality Pelvis, Abdomen Ultrasound Narrative 10/19/2018 2:12 PM CDT Sandoval Campos MD 10/19/2018 2:12 PM [facility] [place] OB ULTRASOUND - < 14 WEEKS Pt. Name: Jazmin Negrete is a 33 year old : 1985 LMP: Patient's last menstrual period was 09/27/2018 (exact date). Exam Date: 10/19/2018 Referring Physician: Andrei Campos Reason for Scan: Dates / viability Gestational age: 7 wks 1 days Gestational age by today's U/S: 7 wks 6 days # Single IUP Yolk Sac: seen CRL: 1.49 cm consistent with 7 wks 6 days FHR: 162 bpm Cervical length: 3.99 cm Left Ovary: Length 3.14 cm. Width 1.64 cm. Height 1.27 cm. Volume 3.424 cc Right Ovary: Length 3.06 cm. Width 1.69 cm. Height 3.07 cm. Volume 8.313 cc OCTAVIO by U/S: 06/01/2019 Neon Sign Maker comments: There is a 1.6cm complex mass on the right ovary. Physician Interpretation: Viable IUP. New EDC. Neon Sign Maker: Tila Pradhan RDMS, RT(R) Images will be scanned into the record. Interpreting Physician: Andrei Campos Sandoval Campos MD US ORDERABLES * HIV-1 HIV-2 ANTIBODY + HIV P24 AG PANEL (10/05/2018 11:32 AM CDT) HIV Screen 4th Generation w Reflex Non Reactive Non Reactive [facility] ACCOUNT BILL 10/05/2018 11:3 2 AM CDT 10/05/2018 Narrative Resulting Agency Comment [facility] [facility] [place] [address] [facility] [phone] Sandoval Campos MD LAB - CHEMISTRY ORD ERABLES [facility] ACCOUNT BILL [address] [place] [address] * RPR (10/05/2018 11:32 AM CDT) RPR Non Reactive Non Reactive [facility] ACCOUNT BILL Blood BLOOD SPECIMEN / Unknown 10/05/2018 11:32 AM CDT 10/05/2018 Narrative Resulting Agency Comment [facility] [address] [facility] [phone] Sandoval Campos MD LAB - CHEMISTRY ORD ERABLES [facility] ACCOUNT BILL [address] [place] [address] * PROGESTERONE (10/05/2018 11:32 AM CDT) Progesterone 18.5 ng/mL [facility] ACCOUNT BILL Comment: Follicular phase 0.1 - 0.9 Luteal phase 1.8 - 23.9 Ovulation phase 0.1 - 12.0 First trimester 11.0 - 44.3 Second trimester 25.4 - 83.3 Third trimester 58.7 - 214.0 Postmenopausal 0.0 - 0.1 Blood BLOOD SPECIMEN / Unknown 10/05/2018 11:32 AM CDT 10/05/2018 Narrative Resulting Agency Comment [facility] [address] [facility] [id number] Sandoval Campos MD LAB - CHEMISTRY ORD ERABLES Performing Organization Address [facility]/ZIP Co de Phone Number [facility] ACCOUNT BILL [address] [place] [address] * (ABNORMAL) RUBELLA ANTIBODY IGG (10/05/2018 11:32 AM CDT) Rubella Antibody <0.90(L) Immune >0.99 index [facility] ACCOUNT BILL Comment: Non-immune <0.90 Equivocal 0.90 - 0.99 Immune >0.99 Blood BLOOD SPECIMEN / Unknown 10/05/2018 11:32 AM CDT 10/05/2018 Narrative Resulting Agency Comment [facility] [address] [facility] [phone] Sandoval Campos MD LAB - SEROLOGY ORDE RABLES Performing Organization Address [facility] Co de Phone Number [facility] ACCOUNT BILL [address] [place] [address] * VITAMIN D 25-HYDROXY (10/05/2018 11:32 AM CDT) Vitamin D, 25 Hydroxy 31.2 30.0 - 100.0 ng/mL [facility] ACCOUNT BILL Comment: Vitamin D deficiency has been defined by the [place] of Medicine and an Endocrine Society practice guideline as a level of serum 25-OH vitamin D less than 20 ng/mL (1,2). The Endocrine Society went on to further define vitamin D insufficiency as a level between 21 and 29 ng/mL (2). 1. IOM ([place] of Medicine). 2010. Dietary reference intakes for calcium and D. [place]: The National Academies Press. 2. Lukas MF, Becca NC, Zoila GILLIAM, et al. Evaluation, treatment, and prevention of vitamin D deficiency: an Endocrine Society clinical practice guideline. JCEM. 2010; 96(7):1911-30. Blood BLOOD SPECIMEN / Unknown 10/05/2018 11:32 AM CDT 10/05/2018 Narrative Resulting Agency Comment [facility] [address] [facility] [phone] Sandoval Campos MD LAB - CHEMISTRY ORD ERABLES [facility] ACCOUNT BILL [address] [place] [address] * BLOOD TYPE ABO ONLY (10/05/2018 11:32 AM CDT) ABO O [facility] AC COUNT BILL Blood BLOOD SPECIMEN / Unknown 10/05/2018 11:32 AM CDT 10/05/2018 Narrative Resulting Agency Comment [facility] [address] [facility] [phone] Sandoval Campos MD LAB - BLOOD BANK OR DERABLES Performing Organization Address [facility] Co de Phone Number [facility] ACCOUNT BILL [address] [place] [address] * BLOOD TYPE RH ONLY (10/05/2018 11:32 AM CDT) Rh Type Positive [facility] ACCOUNT BILL Comment: Please note: Prior records for this patient's ABO / Rh type are not available for additional verification. Blood BLOOD SPECIMEN / Unknown 10/05/2018 11:32 AM CDT 10/05/2018 Narrative Resulting Agency Comment [facility] [address] [facility] [phone] Sandoval Campos MD LAB - BLOOD BANK OR DERABLES Performing Organization Address City[facility]/ZIP Co de Phone Number [facility] ACCOUNT BILL [address] [place] [address] * ANTIBODY SCREEN (10/05/2018 11:32 AM CDT) Antibody Screen Negative Negative [facility] ACCOUNT BILL Blood BLOOD SPECIMEN / Unknown 10/05/2018 11:32 AM CDT 10/05/2018 Narrative Resulting Agency Comment [facility] [address] [facility] [phone] Sandoval Campos MD LAB - BLOOD BANK OR DERABLES [facility] ACCOUNT BILL [address] [place] [address] * HCG BETA BLOOD QUANTITATIVE (10/05/2018 11:32 AM CDT) hCG Value 14,732 mIU/mL [facility] ACCOUNT BILL Comment: Female (Non-) 0 - 5 (Postmenopausal) 0 - 8 . Female () Weeks of Gestation 3 6 - 71 4 10 - 750 5 693 - 8484 6 514 - 48738 7 [phone] 8 [phone] 9 [phone] 10 [phone] 12 [phone] 14 12500 - 28328 15 16488 - 33667 16 8438 - 84616 17 6626 - 88087 18 [phone] [phone] Vivian ECLIA methodology Blood BLOOD SPECIMEN / Unknown 10/05/2018 11:32 AM CDT 10/05/2018 Narrative Resulting Agency Comment [facility] [address] [facility] [phone] Sandoval Campos MD LAB - CHEMISTRY ORD ERABLES [facility] ACCOUNT BILL [address] [place] [address] * HEPATITIS B SURFACE ANTIGEN W RFLX CONFIRMATION (10/05/2018 11:32 AM CDT) Pathologist [facility] Hepatitis B Virus Surface Antigen Negative Negative [facility] ACCOUNT BILL Blood BLOOD SPECIMEN / Unknown 10/05/2018 11:32 AM CDT 10/05/2018 Narrative Resulting Agency Comment [facility] [address] [facility] [id number] Sandoval Campos MD LAB - CHEMISTRY ORD ERABLES [facility] ACCOUNT BILL [address] [place] [address] * (ABNORMAL) TSH (10/05/2018 11:32 AM CDT) TSH 6.770(H) 0.450 - 4.500 uIU/mL [facility] ACCOUNT BILL Blood BLOOD SPECIMEN / Unknown 10/05/2018 11:32 AM CDT 10/05/2018 Narrative Resulting Agency Comment [facility] [address] [facility] [phone] Sandoval Campos MD LAB - CHEMISTRY ORD ERABLES [facility] ACCOUNT BILL [address] [place] [address] * T4 FREE (10/05/2018 11:32 AM CDT) T4 Free 1.09 0.82 - 1.77 ng/dL [facility] ACCOUNT BILL Blood BLOOD SPECIMEN / Unknown 10/05/2018 11:32 AM CDT 10/05/2018 Narrative Resulting Agency Comment [facility] [address] [facility] [phone] Sandoval Campos MD LAB - CHEMISTRY ORD ERABLES Performing Organization Address [facility] Co de Phone Number [facility] [place] [address] * URINALYSIS AUTO - POINT OF CARE (10/05/2018 11:20 AM CDT) Pathologist [facility] Clarity UA POCT clear Color UA POCT tenisha Leukocyte UA negative Negative Nitrite UA POCT negative Negative Urobilinogen UA 0.2 0.1 - 1.0 Protein UA POCT negative Negative pH UA 7.0 5.0 - 8.0 pH units Blood UA negative Negative Specific [place] UA POCT 1.015 1.002 - 1.030 Ketone UA negative Negative Bilirubin UA POCT negative Negative Glucose UA negative Negative Urine URINE / Unknown 10/05/2018 1 1:20 AM CDT Sandoval Campos MD LAB - POINT OF CARE ORDERABLES * CULTURE URINE (10/05/2018 11:20 AM CDT) Pathologist [facility] Urine Culture Routine Final report [facility] ACCOUNT BILL Result 1 No growth [facility] ACCOUNT BILL Urine MID-STREAM URINE SPECIMEN / Unknown 10/05/2018 11:20 AM CDT 10/05/2018 Narrative Resulting Agency Comment [facility] [address] [facility] [phone] Sandoval Campos MD LAB - MICROBIOLOGY ORDERABLES [facility] ACCOUNT BILL [address] [place] [address] * PAP IG LB CT+GC+TV+ HPV HR DNA (10/05/2018 10:48 AM CDT) Diagnosis [facility] ACCOUNT BILL Comment:NEGATIVE FOR INTRAEP ITHELIAL LESION OR MALIGNANCY. Specimen Adequacy [facility] ACCOUNT BILL Comment: Satisfactory for evaluation. Endocervical and/or squamous metaplastic cells (endocervical component) are present. Clinician Provided ICD10 [facility] ACCOUNT BILL Comment:N91.2 Performed by [facility] ACCOUNT BILL Comment:Mao Luis , Sales Administrator (ASCP) Comment . [facility] ACCOUNT BILL Note [facility] ACCOUNT BILL Comment: The Pap smear is a screening test designed to aid in the detection of premalignant and malignant conditions of the uterine cervix. It is not a diagnostic procedure and should not be used as the sole means of detecting cervical cancer. Both false-positive and false-negative reports do occur. . IGLBP CPT Code Automation [facility] ACCOUNT BILL Comment: This liquid based ThinPrep(R) pap test was screened with the use of an image guided system. Human papillomavirus High Risk Negative Negative [facility] ACCOUNT BILL Comment: This high-risk HPV test detects thirteen high-risk types (16/18/31/33/35/39/45/51/52/56/58/59/68) without differentiation. . Chlamydia trachomatis NANCY Negative Negative [facility] ACCOUNT BILL GC NANCY Negative Negative [facility] ACCOUNT BILL Trichomonas vaginalis by NANCY Negative Negative [facility] ACCOUNT BILL Pathology/Cytolog y PART OF UTERINE CERVIX / Unknown 10/05/2018 10:48 AM CDT 10/05/2018 Narrative [facility] ACCOUNT BILL - 10/09/2018 4:36 PM CDT Source.............Cervix No. of containers..01 ThinPrep Vial Resulting Agency Comment [facility] [address] [phone] Sandoval Campos MD LAB - PATHOLOGY/CYT OLOGY ORDERABLES [facility] ACCOUNT BILL [address] [place] [address] Care Teams Gi Physician Relationship Specialty Start Date End Date Lilia Kinney PA [address] [place] [address] PCP - General Physician Printed Circuit Board Designer 10/05/18
--- OUTSIDE RECORDS SUMMARY | 2024-08-09 08:05 | XMS_ITS | Referral Summary ---
Author Organization [facility] Address [address] [place] [address] Care Team Providers Care Sail Lay Out Worker Name Role Phone Lilia Kinney Primary Care Pr ovider Source Comments [facility],non-owned Affiliates and Associated Physician Practices is amultiple site organization consisting of ambulatory clinics and hospital sitesin [place], [place], [place] and [place]. This disclosure is being madepursuant to the Care Everywhere program and may not contain all information available regarding this patient. Last updated 18.[facility] Allergies No known active allergies Medications * Be aware that medications may not be up to date on this document. Alwaysverify current medications with the patient. Medication Sig Dispensed Refills Start Date End Date Status sertraline (ZOLOFT) 50 MG tabletIndications:P ostpartum care following vaginal delivery (HCC) Take 1 tablet by mouth once daily 90 tablet 10/05/2019 Active Additional Information Patient not taking.Reported on 06/12/2020 norethin-eth estrad-fe biphas (LO LOESTRIN FE) tablet Take 1 tablet by mouth once daily 84 tablet 3 06/12/2020 Active Active Problems Problem Noted Date Diagnosed Date 06/04/2019 Rubella non-immune status, antepartum 10/06/2018 Immunizations Name Administration Dates Next Due MMR 06/06/2019 TDAP (7yrs+) 05/08/2019 Social History Tobacco Use Types Packs/Day Years [...] Comments Blood Pressure 100/68 06/12/2020 11:53 AM TELEPHONE MAINTAINER Pulse 63 06/05/2019 10:49 PM TELEPHONE MAINTAINER Temperature 37 C (98.6 F) 06/06/2019 7:55 AM TELEPHONE MAINTAINER Respiratory Rate 18 06/06/2019 7:55 AM TELEPHONE MAINTAINER Oxygen Saturation 98% 06/06/2019 7:50 AM TELEPHONE MAINTAINER Inhaled Oxygen Concentration - - Weight 88 kg (194 lb) 06/12/2020 11:53 AM TELEPHONE MAINTAINER Height 157.5 cm (5' 2 ) 06/12/2020 11:53 AM TELEPHONE MAINTAINER Body Mass Index 35.48 06/12/2020 11:53 AM TELEPHONE MAINTAINER Functional Status Functional Status Response Date of Assess ment Is person deaf or have serious hearing difficult y? No 06/04/2019 Is person blind or have serious difficulty seein g? No 06/04/2019 Does person have serious dif ficulty walking/climbing stairs? No 06/04/2019 Does person have difficulty dressing/bathing? No 06/04/2019 Does person have difficulty doing errands alone? No 06/04/2019 Cognitive Status Response Date of Assessm ent Does person have difficulty concentrating/remembering/making decisions? No 06/04/2019 Plan of Treatment Not on file Procedures Procedure Name Priority Date/Time Associated Diagnosis Comments PAP IG LB+HPV APTIMA Routine 06/12/2020 12:30 PM TELEPHONE MAINTAINER Well woman exam with routine gynecological exam HIV-1 HIV-2 ANTIBODY + HIV P24 AG PANEL 10/05/2018 11:32 AM CDT from Last 3 Months or Most Recently Relevant to Health Maintenance Results * PAP IG LB+HPV APTIMA (06/12/2020 12:30 PM TELEPHONE MAINTAINER) Diagnosis [facility] ACCOUNT BILL Comment:NEGATIVE FOR INTRAEP [...] UTERINE CERVIX / Unknown 06/12/2020 12:30 PM TELEPHONE MAINTAINER 06/13/2020 Narrative [facility] ACCOUNT BILL - 06/16/2020 3:08 PM TELEPHONE MAINTAINER Source.............Cervix;Endocervix No. of containers..01 ThinPrep Vial Resulting Agency Comment Lab Testing performed at: [facility] [address] [id number] Sandoval Campos MD LAB - PATHOLOGY/CYT OLOGY ORDERABLES [facility] ACCOUNT BILL [address] [place] [address] * HIV-1 HIV-2 ANTIBODY + HIV P24 AG PANEL (10/05/2018 11:32 AM CDT) HIV Screen 4th Generation w Reflex Non Reactive Non Reactive [facility] ACCOUNT BILL 10/05/2018 11:3 2 AM CDT 10/05/2018 Narrative Resulting Agency Comment [facility] [place] [address] [facility] [id number] Sandoval Campos MD LAB - CHEMISTRY ORD ERABLES [facility] ACCOUNT BILL [address] [place] [address] from Last 3 Months or Most Recently Relevant to Health Maintenance Advance Directives * Full Code (Latest Code Status on File) Date Activated Date Inactivated Comments 06/04/2019 4:24 AM 06/06/2019 3:05 PM Care Teams Sail Lay Out Worker Relationship Specialty Start Date End Date Lilia Kinney PA [address] [place] [address] PCP - General Physician Electronic Heat Seal Operator 10/05/18
--- OUTSIDE RECORDS SUMMARY | 2024-08-09 08:05 | XMS_ITS | Clinical Summary ---
Author Organization [facility] Address [address] [place] [address] Care Team Providers Care Commercial Sewing Instructor Name Role Phone Lilia Kinney Primary Care Pr ovider Source Comments [facility],non-owned Affiliates and Associated Physician Practices is amultiple site organization consisting of ambulatory clinics and hospital sitesin [place], [place], [place] and [place]. This disclosure is being madepursuant to the Care Everywhere program and may not contain all information available regarding this patient. Last updated 18.[facility] Allergies No known active allergies Medications * [...] Next Due MMR 06/06/2019 TDAP (7yrs+) 05/08/2019 Family History Medical History Relation Name Comments Diabetes - Type 2 Maternal Grandmother Hypertension Maternal Grandmother CAD (Coronary Artery Disease) Mother Hypertension Mother Relation Name Status Comments Maternal Grandmother Mother Social History Tobacco Use Types Packs/Day Years [...] Comments Blood Pressure 100/68 06/12/2020 11:53 AM TITRATOR Pulse 63 06/05/2019 10:49 PM TITRATOR Temperature 37 C (98.6 F) 06/06/2019 7:55 AM TITRATOR Respiratory Rate 18 06/06/2019 7:55 AM TITRATOR Oxygen Saturation 98% 06/06/2019 7:50 AM TITRATOR Inhaled Oxygen Concentration - - Weight 88 kg (194 lb) 06/12/2020 11:53 AM TITRATOR Height 157.5 cm (5' 2 ) 06/12/2020 11:53 AM TITRATOR Body Mass Index 35.48 06/12/2020 11:53 AM TITRATOR Plan of Treatment Health Maintenance Due Date Last Done Comments HEPATITIS C SCREENING 06/13/2004 HEPATITIS B VACCINE (1 of 3 - 19+ 3-dose series) 2005 COVID-19 VACCINE ( - 2023-2 5 season) 2024 INFLUENZA VACCINE (#1) 2024 DEPRESSION SCREENING 07/04/2024 PAP with HPV 06/12/2025 06/12/2020, 10/05/2018 DTAP/TDAP/TD VACCINES (2 - T d or Tdap) 05/08/2029 05/08/2019 ZOSTER VACCINE (1 of 2) 2036 HIV SCREENING Completed 10/05/2018 HIB VACCINE Aged Out No longer eligi ble based on patient's age to complete this topic HPV VACCINE Aged Out No longer eligi ble based on patient's age to complete this topic MENINGOCOCCAL (Group B) VACCINE Aged Out No longer eligible b ased on patient's age to complete this topic MENINGOCOCCAL VACCINE Aged Out No zulema sanjay eligible based on patient's age to complete this topic PNEUMOCOCCAL VACCINE Aged Out No long er eligible based on patient's age to complete this topic Procedures Procedure Name Priority Date/Time Associated Diagnosis Comments PAP IG LB+HPV APTIMA Routine 06/12/2020 12:30 PM TITRATOR Well woman exam with routine gynecological exam HIV-1 HIV-2 ANTIBODY + HIV P24 AG PANEL 10/05/2018 11:32 AM CDT from Last 3 Months or Most Recently Relevant to Health Maintenance Results * PAP IG LB+HPV APTIMA (06/12/2020 12:30 PM TITRATOR) Diagnosis [facility] ACCOUNT BILL Comment:NEGATIVE FOR INTRAEP [...] UTERINE CERVIX / Unknown 06/12/2020 12:30 PM TITRATOR 06/13/2020 Narrative [facility] ACCOUNT BILL - 06/16/2020 3:08 PM TITRATOR Source.............Cervix;Endocervix No. of containers..01 ThinPrep Vial Resulting Agency Comment Lab Testing performed at: [address] [id number] Sandoval Campos MD LAB - PATHOLOGY/CYT OLOGY ORDERABLES [facility] ACCOUNT BILL [address] [place] [address] * HIV-1 HIV-2 ANTIBODY + HIV P24 AG PANEL (10/05/2018 11:32 AM CDT) HIV Screen 4th Generation w Reflex Non Reactive Non Reactive [facility] ACCOUNT BILL 10/05/2018 11:3 2 AM CDT 10/05/2018 Narrative Resulting Agency Comment [facility] [address] [facility] [id number] Sandoval Campos MD LAB - CHEMISTRY ORD ERABLES [facility] ACCOUNT BILL [address] [place] [address] from Last 3 Months or Most Recently Relevant to Health Maintenance Advance Directives * Full Code (Latest Code Status on File) Date Activated Date Inactivated Comments 06/04/2019 4:24 AM 06/06/2019 3:05 PM Care Teams Commercial Sewing Instructor Relationship Specialty Start Date End Date Lilia Kinney PA [address] [place] [address] PCP - General Physician [place] Operator 10/05/18
--- OUTSIDE RECORDS SUMMARY | 2024-08-09 08:05 | XMS_ITS | Clinical Summary ---
Author Organization [facility] Address [address] [place] [address] Care Team Providers Care Shell Plater Name Role Phone None, Provider MD Primary Care Provider Unavaila ble Medications escitalopram (LEXAPRO) 5 MG tablet Take 1 tablet (5 mg total) by mouth daily. 06/28/2023 Active SYNTHROID 88 MCG tablet Take 1 tablet (88 mcg total) by mouth daily. Active JUNE07/23 1-20 MG-MCG tablet Take 1 tablet by mouth daily. 07/01/2023 Active thyroid (NEEDLE LEADER THYROID) 60 MG OR tablet Active Active Problems No known active problems Social History Tobacco Use Types Packs/Day Years Used Date Smoking Tobacco: Never Smokeless Tobacco: Never Tobacco Cessation:Counseling Given: No Alcohol Use Standard Drinks/Week Comments Not Currently 0 (1 standard drink = 0.6 oz pur e alcohol) PHQ-2 Answer Date Recorded Patient Health Questionnaire-2 Score 0 08/12/2023 Comments Unknown Sex and Gender Information Value Date Recorded Sex Assigned at Not on file Legal Sex Female 5:25 PM CDT Gender Identity Not on file Sexual Orientation Not on file Last Filed Vital Signs Vital Sign Reading Time Taken Comments Blood Pressure 112/64 08/12/2023 12:29 PM MUSIC INDUSTRY INTERN Pulse 88 08/12/2023 12:29 PM MUSIC INDUSTRY INTERN Temperature 37.2 C (99 F) 08/12/2023 12:29 PM MUSIC INDUSTRY INTERN Respiratory Rate 16 08/12/2023 12:29 PM MUSIC INDUSTRY INTERN Oxygen Saturation 98% 08/12/2023 12:29 PM MUSIC INDUSTRY INTERN Inhaled Oxygen Concentration - - Weight 63 kg (139 lb) 08/12/2023 12:29 PM MUSIC INDUSTRY INTERN Height 157.5 cm (5' 2 ) 08/12/2023 12:29 PM MUSIC INDUSTRY INTERN Body Mass Index 25.42 08/12/2023 12:29 PM MUSIC INDUSTRY INTERN Plan of Treatment Health Maintenance Due Date Last Done Comments Annual Physical 1989 Hepatitis C 2004 Hepatitis B Vaccines (1 of 3 - 19+ 3-dose series) 2005 Cervical Cancer Screening Pa p with HPV Testing (Age 30 to 64) Every 5 Years 2016 COVID-19 Vaccine (1 - 2023-2 5 season) 2024 Influenza Adult (#1) 2024 05/03/2018 PHQ-2 (Physician [place]) 07/04/2024 08/12/2023 PHQ-2 (Physician [place]) 08/12/2024 08/12/2023 Cervical Cancer Screening Pa p Smear (Age 30 to 64) Every 3 Years 03/16/2026 03/16/2023 Cervical Cancer Screening with HPV 03/16/2026 DTaP, Tdap and Td Vaccines ( 2 - Td or Tdap) 05/08/2029 05/08/2019 HPV Vaccines Aged Out No longer eligi ble based on patient's age to complete this topic Meningococcal B Vaccine Aged Out No l onger eligible based on patient's age to complete this topic Meningococcal Vaccine Aged Out No zulema sanjay eligible based on patient's age to complete this topic Pneumococcal Vaccine: Pediat rics (0 to 5 Years) and At-Risk Patients (6 to 64 Years) Aged Out No longer eligi ble based on patient's age to complete this topic RSV Immunizations Under 20 Months Aged Out No longer eligible based on patient's age to complete this topic Insurance [facility] Care Teams Shell Plater Relationship Specialty Start Date End Date None, Provider, MD PCP - General UNKNOWN PHYSICIAN SPECIALTY 08/12/23
== END 2024-08-08 07:01 | disposition home or self-care (01) ==
LOC: ANHLAB 08-09 08:02
PROVIDERS: PCP Physician Assistant; Visit Provider Surgery Plastic and Reconstructive Surgery
DX: N60.22 Fibroadenosis of left breast (principal); Z94.89 Other transplanted organ and tissue status; Z98.82 Breast implant status
CPT/HCPCS: 88304

== ENCOUNTER 2025-06-13 10:13 | Outpatient (CLI) | payer OTHER, SELFPAY ==
--- NOTE | ~2025-06-13 | MR_ITS ---
EXAMINATION: MR cervical spine wo con DATE: 06/13/2025 10:38 INDICATION: Radiculopathy TECHNIQUE: Magnetic resonance imaging (MRI) of the cervical spine was performed without intravenous contrast. Sequences included sagittal T2-weighted FSE, sagittal T2-weighted FS FSE, sagittal T1-weighted FSE, axial MERGE, and axial T2-weighted FSE. COMPARISON: None FINDINGS: Degenerative changes are present throughout the cervical spine involving disc spaces uncovertebral joints and pedicles. Degenerative changes are particular severe at C4-5. Anterior posterior spondylosis present at this level as well as hyperintense T2-weighted signal changes within the disc space which appears slightly prominent possibly mildly increased in size. Slight ill-defined hyperintense T2-weighted signal change present in the spinal cord at this level as seen on image 11 of series 5 and 6, and sagittal image 8 series 3. Visualized portions of the posterior fossa unremarkable. Level specific findings as follows: C2-3: Mild degenerative change C3-4: Mild to moderate posterior disc bulging and spondylosis but no spinal canal stenosis or discrete disc protrusion. C4-5: Moderately severe broad-based disc bulging with mild spinal canal stenosis. The AP diameter of the canal measures approximately 7.5 mm. Flattening of the anterior margin of the spinal cord present. Mild to moderate bilateral neural foraminal narrowing. C5-6: Moderate posterior spondylosis but no discrete disc protrusion or spinal canal stenosis. Mild to moderate bilateral neural foraminal narrowing. C6-7: Mild degenerative changes C7-T1: Mild degenerative changes IMPRESSION: 1. Advanced degenerative appearing changes at the C4-5 level with mild spinal canal stenosis and possible early developing myelopathic changes, although no discrete medullary cord signal changes are present. 2. The disc space at C4-5 also is abnormal in appearance and early developing discitis is not excluded. Correlate with CRP and white blood cell count. Short interval follow-up cervical spine MRI with contrast sequences may provide additional beneficial information. 2. Other level specific findings as cataloged above. Reviewed, dictated and finalized at location A. ISTHENICS INSTRUCTOR IMPRESSION: 1. Advanced degenerative appearing changes at the C4-5 level with mild spinal c anal stenosis and possible early developing myelopathic changes, although no di screte medullary cord signal changes are present. 2. The disc space at C4-5 also is abnormal in appearance and early developing d iscitis is not excluded. Correlate with CRP and white blood cell count. Short i nterval follow-up cervical spine MRI with contrast sequences may provide additi onal beneficial information. 2. Other level specific findings as cataloged above.
== END 2025-06-13 10:14 | disposition home or self-care (01) ==
LOC: MICIMG 10:13
PROVIDERS: PCP Physician Assistant; Visit Provider Physician Assistant
DX: M47.892 Other spondylosis, cervical region (principal)
CPT/HCPCS: 72141